=== PATIENT | male | born 1945 | race Caucasian/White ===

== ENCOUNTER 2025-09-10 10:23 | Outpatient (CLI) | payer MEDICARE | END 2025-09-10 10:24 | disposition home or self-care (01) | LOC: CSHCT 10:23 | PROVIDERS: ATTEND Nurse Practitioner Family | DX: H60.63 Unspecified chronic otitis externa, bilateral (principal); H92.13 Otorrhea, bilateral; H74.8X2 Other specified disorders of left middle ear and mastoid | CPT/HCPCS: 70480 ==